=== PATIENT | male | born 1995 | race Caucasian/White ===

== ENCOUNTER 2021-02-03 21:15 | Inpatient (IN) ==
[2021-02-04 05:35] LABS: Rapid COVID-19 Molecular Undetected (Undetected)
[2021-02-04 07:59] VITALS: BP 158/91
[2021-02-04] MEDS ORDERED: Al Hydrox/Mg Hydrox/Simet LIQ 30 ML UDC PO PRN (08:05)
[2021-02-04] MEDS ORDERED: Vitamin THERAPEUTIC TAB PO SCH (09:00)
[2021-02-04] MEDS ORDERED: Flu vaccine *QUAD* 2021-22* 0.5 ML SYRINGE IM ONE (15:00)
== END 2021-02-04 17:50 | disposition home or self-care (01) | DRG 754 ==
LOC: ED 21:15 → BSU 02-04 06:00
PROVIDERS: ADMIT Psychiatry & Neurology Psychiatry; ATTEND Psychiatry & Neurology Psychiatry